=== PATIENT | female | born 1935 | race Caucasian/White ===

== ENCOUNTER → 2023-12-29 09:37 | Outpatient (REF) | payer MEDICARE, BC, SELFPAY ==
[2023-12-29 11:15] LABS: ALT (SGPT) < 10 U/L (0-35); AST (SGOT) 20 U/L (14-36); Albumin 3.5 g/dl (3.5-5.0); Alkaline Phosphatase 82 U/L (38-126); Blood Urea Nitrogen 22 mg/dl (7-17); Calcium 9.2 mg/dl (8.4-10.2); Carbon Dioxide 23 mmol/L (22-30); Chloride 102 mmol/L (98-107); Glucose 82 mg/dl (70-99); Potassium 4.3 mmol/L (3.5-5.1); Sodium 130 mmol/L (135-145); Total Bilirubin 0.6 mg/dl (0.2-1.3); Total Protein 6.7 g/dl (6.3-8.2); eGFR > 60.00
== END ==
LOC: REG 09:37
PROVIDERS: ATTENDING PHYSICIAN Internal Medicine Geriatric Medicine
DX: R35.0 Frequency of micturition (principal); R30.0 Dysuria; M77.8 Other enthesopathies, not elsewhere classified; I10 Essential (primary) hypertension; E78.2 Mixed hyperlipidemia; I48.91 Unspecified atrial fibrillation; I48.0 Paroxysmal atrial fibrillation; F32.0 Major depressive disorder, single episode, mild; E21.3 Hyperparathyroidism, unspecified; Z13.89 Encounter for screening for other disorder; M54.2 Cervicalgia; L98.9 Disorder of the skin and subcutaneous tissue, unspecified; E03.9 Hypothyroidism, unspecified
CPT/HCPCS: 36415; 80053

== ENCOUNTER → 2024-01-27 11:57 | Outpatient (REF) | payer MEDICARE, BC, SELFPAY ==
[2024-01-27 13:50] LABS: Blood Urea Nitrogen 25 mg/dl (7-17); Calcium 9.4 mg/dl (8.4-10.2); Carbon Dioxide 24 mmol/L (22-30); Chloride 99 mmol/L (98-107); Glucose 79 mg/dl (70-99); Potassium 4.2 mmol/L (3.5-5.1); Sodium 130 mmol/L (135-145); eGFR > 60.00
== END ==
LOC: REG 11:57
PROVIDERS: ATTENDING PHYSICIAN Internal Medicine Geriatric Medicine
DX: E87.1 Hypo-osmolality and hyponatremia (principal)
CPT/HCPCS: 36415; 80048

== ENCOUNTER → 2024-02-02 09:40 | Outpatient (REF) | payer MEDICARE, BC, SELFPAY ==
[2024-02-02 10:24] LABS: Osmolality Urine 414 mOsm/kg (300-900)
[2024-02-02 10:55] LABS: Urine Sodium 24 mmol/L (30-90)
== END ==
LOC: REG 09:40
PROVIDERS: ATTENDING PHYSICIAN Internal Medicine Geriatric Medicine
DX: E87.1 Hypo-osmolality and hyponatremia (principal)
CPT/HCPCS: 83935; 84300

== ENCOUNTER 2024-02-26 18:31 | Inpatient (IN) | payer MEDICARE, BC, SELFPAY ==
[2024-02-26] VITALS (18 sets, daily range): BP systolic 107–218; BP diastolic 54–167; BMI 23.9; BMI 23.5
[2024-02-26 16:22] LABS: Glucose - Point of Care 124 mg/dl (70-99)
--- NOTE | 2024-02-26 16:23 | ED.CVA ---
Addendum entered and electronically signed by Fabio Hou PA-C 02/27/24 12:11:
Patient is not a TNK candidate due to low NIH score as well as already anticoagulated with NOAC.
Original Note:
History of Present Illness
General
Chief Complaint: CVA/TIA Symptoms
Source: patient, family and ambulance crew
Time Seen by Provider: 02/26/24 16:08
Onset of Stroke Symptoms
Onset of symptoms known: Yes
Date of onset of symptoms: 02/26/24
Time of onset of symptoms: 14:45
Travel History
Have you had any contact with someone who has COVID-19?: No
Do you have any symptoms of coronavirus? Fever > 100 degrees, chills, cough, shortness of breath, sore throat, loss of taste or smell, muscle aches, or headache?: No
History of Present Illness
History of Present Illness:
89-year-old female with past medical history of CVA, hypertension, atrial fibrillation, previous MO, valvular disease presenting to the emergency department via EMS after family noticed patient had an acute onset of left upper extremity weakness and
speech difficulty around 245 this afternoon with symptoms resolving after around 15 to 20 minutes. Patient arrives to the emergency department stating she feels much better and without any specific concern and family noting that patient's speech
difficulties seem to be fully resolved. Patient denies any associated headaches, visual disturbances, chest pain, shortness of breath, palpitations, diaphoresis or exertional dyspnea. Patient lives alone, daughter is visiting from [place] and had
just gotten to the patient's house when symptoms started patient does take Eliquis daily due to her history of atrial fibrillation and reports good compliance with this. No other concerns.
Past History
Past History
ED Past Medical History: Arrthythmia (Atrial fib), CAD, CVA, GERD, HTN, Hypercholesterolemia, MO, Hypothyroidism, Other (Colitis, Divertiulitis, Left eye vitreous detachment, Migraine) and Other (Posterior vitreous detachment, overactive bladder,
osteoarthritis, mitral and tricuspid regurgitation, ischemic colitis, septal MO in 2015, cardiac cath,)
ED Past Surgical History: Cardiac and Orthopedic (Bilateral knee replacements)
Social History
Tobacco: Non-smoker
Alcohol: None
Drug: None
Personal:
Living: alone (daughter)
Employment: Retired
Family History
Family History: Other (n/c)
Review of Systems
Review of Systems
All Other Systems: ROS reviewed and negative except as documented in HPI and ROS
Phy Exam
Physical Exam
Physical Exam:
GENERAL: Alert , in no apparent distress
EYE: pupils equal and reactive
NECK: Supple
ENT: o/p clr, mmm.
CARDIAC: Regular rate and rhythm, systolic murmur.
LUNGS: Clear breath sounds bilaterally, no acute respiratory distress, no wheezes/rales/rhonchi
ABDOMEN: Soft, without focal tenderness, no r/g, no cvat
SKIN: Warm and dry, skin intact.
MUSCULOSKELETAL: No edema, well perfused.
PSYCH: Normal and appropriate interaction.
NEURO: Moves all extremities, no sensory deficits, no aphasia or dysarthria, no dysmetria, sensory grossly intact to light touch throughout, awake alert and oriented times
Scores
NIH Stroke Score
Level of Consciousness: 0 - Alert
LOC Questions: 0-Answers both correctly
LOC Commands: 0-Performs both correctly
Best Horizontal Gaze: 0-Normal
Visual Hunter: 0=Normal, no visual loss
Facial Palsy: 0=Normal, symmetrical
Motor - Right Arm: 0=No drift 10 seconds
Motor - Left Arm: 0=No drift 10 seconds
Motor - Right Le-No drift 5 seconds
Motor - Left Le-No drift 5 seconds
Limb Ataxia: 0-Absent
Sensation: 0-Normal
Best Language: 0-No aphasia
Dysarthria: 0-Normal
Extinction and Inattention: 0-No abnormality
Total Score:: 0
Heart Failure Risk
Heart Failure Risk Score: Not Applicable
Heart Score for Chest Pain Patients
STEMI patient?: Not applicable
Withdrawal Assessment of Alcohol
Withdrawal Assessment Completed?: Not applicable
Course
Orders/Labs/Results
Orders:
Orders
02/26/24 15:58
CT Head W/o Iv Contrast Urgent
Comment:
Reason For Exam: left sided deficit resolved.
02/26/24 16:15
Electrocardiogram (*1) Urgent
Reason for Study: TIA/Stroke
02/26/24 16:16
EKG- Treatment ONCE
02/26/24 16:19
Bedside Glucose- Treatment ONCE
02/26/24 16:26
Orthostatic VS- Treatment ONCE
02/26/24 16:32
HydrALAZINE [Apresoline] 10 mg IV NOW STA
02/26/24 17:13
Complete Blood Count/With Diff Urgent
Comprehensive Metabolic Panel Urgent
PTT Urgent
Prothrombin Time Urgent
TSH Urgent
Troponin I Urgent
02/26/24 18:09
HydrALAZINE [Apresoline] 10 mg IV Q6HPRN PRN
02/26/24 18:11
NEUROLOGY CONSULT Routine
Consulting Provider: Shankar Steiner
Was physician already notified: Yes
Reason for consult: Ataxia, slurred speech, left hand numbness concern CVA/TIA
02/26/24 18:15
Admit/Transfer Patient As Directed
Co-Sign Provider:
Level of Care: Inpatient admission
Assign to:: Telemetry
Physician / Group: oumar chappell r
Diagnosis: slurred speech ataxia concer cva/tia, htn emergency
Reason for Telemetry: CVA/TIA
Date to Stop Telemetry: 02/29/24
Time to Stop Telemetry: 11:00
Reason for Hospitalization: slurred speech ataxia concer cva/tia, htn emergency
Expected length of stay greater than two midnights?: Yes
ELOS- Estimated Length of Stay in days: 3
I certify the patient meets the requirements for IP care: Yes
Code Status As Directed
Resuscitation Status: Full Code
02/27/24 06:00
MRI Brain [MR Brain Without Contrast] IN AM
Comment:
Reason For Exam: cva/tia
OK for patient to be off Cardiac Monitoring for MRI: Yes
Recent pill cam endoscopy?: No
Pacemaker/Defibrillator?: No
Neck With Contrast MRA [MA Neck With Contrast] IN AM
Comment:
Reason For Exam: cva/tia
OK for patient to be off Cardiac Monitoring for MRI: Yes
Recent pill cam endoscopy?: No
Pacemaker/Defibrillator?: No
02/29/24 11:00
DC Protocol for Telemetry ONCE
Abnormal Lab Results
02/26/24 02/26/24
16:20 17:13
RBC 3.88 L 10^6/uL
(4.20-5.40)
Hgb 10.8 L g/dL
(12.0-16.0)
Hct 32.4 L %
(37.0-47.0)
RDW 18.3 H %
(11.5-14.5)
MPV 11.6 H fL
(7.4-10.4)
PT 16.0 H Sec
(11.4-14.6)
APTT 42.3 H Sec
(23.4-35.0)
Sodium 134 L mmol/L
(135-145)
BUN 25 H mg/dl
(7-17)
Glucose 136 H mg/dl
(70-99)
POC Glucose 124 H mg/dl
(70-99)
02/26/24 17:13
02/26/24 17:13
Vital Signs
Initial and Last Documented VS:
Initial Vital Signs
Temp Pulse Resp BP Pulse Ox
97.6 F 67 17 193/89 98
02/26/24 15:53 02/26/24 15:53 02/26/24 15:53 02/26/24 15:53 02/26/24 15:53
Last Documented Vital Signs
Temp Pulse Resp BP Pulse Ox
97.6 F 64 17 203/94 98
02/26/24 15:53 02/26/24 16:59 02/26/24 15:53 02/26/24 16:59 02/26/24 15:53
MDM/Problems Addressed
Differential Diagnosis Includes:
TIA, hypertensive crisis, intracranial bleed, electrolyte disturbance, infectious process
MDM/Problems Addressed:
89-year-old female presenting the ER via EMS for transient speech difficulties and left upper extremity weakness. Symptoms fully resolved at time of arrival. Patient's only significant findings where she seemed to have some difficulty attempting
to place her hearing aids which is something that she does regularly on her own without difficulty. Patient was also found to be extremely hypertensive with an arriving blood pressure of 193/89 and when repeated this was 203/90. On patient's med
list she does have a as needed hydralazine order so we will order this here. Discussed with neurology with ultimate plan to likely admit with concern for TIA versus hypertensive crisis
Chronic conditions affecting care: HTN and Neurological disorder
Acute Exacerbation and/or Progression of Chronic Illness: HTN and Neurological disorder
*Radiology
Radiology exam reviewed: radiology read reviewed
*Pulse Oximetry
Patient hypoxic: no
*EKG
Interpreted by ED Provider?: Yes
Comparison EKG: no changes
Heart Rate: 66
Rate: normal
Rhythm: sinus
[place]: normal axis
Ischemia: non-specific ST changes
*Technical Communication Teacher Interpretation
Rate: normal
Rhythm: sinus
*Critical Care Note
Total Time (30-74mins, 75-104mins- exclusive of procedures): Not Applicable
Data Reviewed
Review of Other/Old Records Reveals: Labs, Records and Radiology Studies
Source: patient, records and family
Patient Management
Social determinants of health affecting care: Living situation
Discussion with other providers: Hospitalist and Roof C[employer] And Paint Maker Helper
Escalation/DeEscalation of care consider admission/obs:
Patient's blood pressure was improved with medications however given her symptoms, age and current living situation I do feel it is more prudent to admit patient to monitor for further symptoms and blood pressure management. Patient and family are
in agreement. Neurology team is aware and hospitalist accepts for continued evaluation and treatment.
ED Attending Note
-
Portions of this chart may have been created with voice recognition software.� Occasional wrong word or��sound alike� substitutions may have occurred due to the inherent limitations of voice recognition software.
Discharge Plan
Departure
Patient Disposition: Admit
Date of Disposition: 02/26/24
Time of Disposition: 17:30
Presentation/result/management discussed w/ accepting MD/DO: Hospitalist
Discharge Problem:
Hypertensive crisis, Brain TIA
Prescriptions:
No Action
lansoprazole [Prevacid] 30 MG capsule,delayed release(DR/EC)
30 mg PO DAILY
Probiotic 1 EACH capsule
1 cap PO DAILY
atorvastatin 40 MG tablet
40 mg PO QPM Qty: 0 0RF
Eliquis 5 MG tablet
5 mg PO BID Qty: 180 3RF
acetaminophen [Tylenol Extra Strength] 500 MG tablet
1,000 mg PO Q6HPRN PRN (Reason: HEADACHE)
coenzyme Q10 [Co Q-10] 100 MG capsule
100 mg PO DAILY
Saline Nasal 50 SPRAYS/45 ML aerosol,spray
2 sprays intranasal HSPRN PRN (Reason: DRYNESS)
cholecalciferol (vitamin D3) 1,000 UNITS tablet
1,000 units PO DAILY
sotalol 80 MG tablet
80 mg PO QPM
levothyroxine 75 mcg Tablet
75 mcg PO DAILY
mirtazapine 7.5 mg Tablet
7.5 mg PO HS
hydralazine 10 mg Tablet
10 mg PO DAILYPRN PRN (Reason: HIGH BP)
trazodone 50 mg Tablet
50 mg PO HSPRN PRN (Reason: SLEEP)
carbidopa-levodopa 25-100 mg Tablet
1 tab PO TID
d-mannose 500 mg Capsule
1,000 mg PO DAILY
Referrals:
Adonis Mishra MD [Family Provider] -
Discharge Date and Time
Print Language: URDU
[2024-02-26] MEDS: APRESOLINE 10 MG IV ×2 (16:59→21:13)
[2024-02-26 17:22] LABS: % Basophils 0.8 % (0-2); % Eosinophils 2.3 % (0-6); % Immature Granulocytes 0.3 % (0-0.5); % Lymphocytes 29.9 % (20.5-51.1); % Monocytes 8.9 % (1.7-9.3); % Neutrophils 57.8 % (42.2-75.2); Absolute Basophils 0.1 10^3/uL (0-0.2); Absolute Eosinophils 0.1 10^3/uL (0-0.7); Absolute Lymphocytes 1.8 10^3/uL (1.2-3.4); Absolute Monocytes 0.5 10^3/uL (0.1-0.6); Absolute Neutrophils 3.4 10^3/uL (1.4-6.5); Hematocrit 32.4 % (37.0-47.0); Hemoglobin 10.8 g/dL (12.0-16.0); Mean Corp Hgb Conc. 33.3 g/dL (33.0-37.0); Mean Corpuscular Hgb 27.8 pg (27.0-31.0); Mean Corpuscular Volume 83.5 fL (81.0-99.0); Mean Platelet Volume 11.6 fL (7.4-10.4); Nucleated Red Blood Cells % 0 %; Platelet Count 215 10^3/uL (130-400); Red Blood Cell Count 3.88 10^6/uL (4.20-5.40); Red Cell Dist. Width 18.3 % (11.5-14.5)
[2024-02-26 17:38] LABS: APTT 42.3 Sec (23.4-35.0)
--- NOTE | 2024-02-26 17:39 | HPS.HSE ---
Family Physician
-
Family Physician: Adonis Mishra
Chief Complaint
-
Euphoria, left hand numbness, slurred speech, ataxia
History of Present Illness
89-year-old female from home where she was drinking tea with her daughter at the table when she stated she felt euphoric then did not feel well she reported numbness to her left hand and had slurred speech which along with ataxic walking using her
walker for approximately 5 minutes. Her daughter called EMS who brought her to the ER for eval she was noted to be hypertensive / was given IV hydralazine with improvement of symptoms. She started trazodone last night for insomnia. She
denies headache, blurred vision, dizziness, sore throat, chest pain, palpitations, shortness breath, cough, abdominal pain, nausea, vomiting, diarrhea, urinary symptoms. She reports taking her a.m. medication.
PMH paroxysmal A-fib, Parkinson's, HTN, CAD/TX, CVA, GERD, diverticulosis, diverticulitis/colitis, stress incontinence urine, overactive bladder, OA, hypothyroidism, fracture right scapula, HUGHES, cataract, migraines
Medical History
Past Medical History
Past Medical History: Reports Other
Additional Past Medical History:
paroxysmal A-fib
Parkinson's
HTN
CAD/TX
CVA
GERD
diverticulosis/, diverticulitis/colitis
stress incontinence urine, overactive bladder
OA
hypothyroidism
fracture right scapula
HUGHES
cataract
migraines
Insomnia
Past Surgical History: Reports Other
Additional Past Surgical History:
Bilateral knee replacement 2010
Arthroscopy right knee 2012
Mass in mouth removed 2014
Social History
Tobacco: Non-smoker
Alcohol: None
Drug: None
Personal: Single
Living: Alone
Employment: Retired
Family History
Family History: Other (Mother CVA, father renal cancer)
Allergies / Home Medications
Allergies reflects when Allergies were last updated in [employer].
Home Medications with original date entered in [employer]
Allergy/Medication List:
Allergies
Allergy/AdvReac Type Severity Reaction Status Date / Time
oxybutynin Allergy hallucinations; Verified 02/26/24 15:53
restless
legs
amitriptyline AdvReac HALLUCINATI Verified 02/26/24 15:53
ONS
Home Medications
lansoprazole 30 mg capsule,delayed release (Prevacid) 30 mg PO DAILY 06/22/13
lactobacillus combination no.4 3 billion cell capsule (Probiotic) 1 cap PO DAILY 01/26/15
atorvastatin 40 mg tablet 40 mg PO QPM ##0 01/28/15
apixaban 5 mg tablet (Eliquis) 5 mg PO BID #180 tabs 12/22/16
acetaminophen 500 mg tablet (Tylenol Extra Strength) 1,000 mg PO Q6HPRN PRN HEADACHE 02/06/17
cholecalciferol (vitamin D3) 25 mcg (1,000 unit) tablet 1,000 units PO DAILY 02/06/17
coenzyme Q10 100 mg capsule (Co Q-10) 100 mg PO DAILY 02/06/17
sodium chloride 0.65 % nasal spray aerosol (Saline Nasal) 2 sprays intranasal HSPRN PRN DRYNESS 02/06/17
sotalol 80 mg tablet 80 mg PO QPM 02/06/19
levothyroxine 75 mcg tablet 75 mcg PO DAILY 10/11/22
mirtazapine 7.5 mg tablet 7.5 mg PO HS 10/11/22
carbidopa 25 mg-levodopa 100 mg tablet 1 tab PO TID 02/26/24
d-mannose 500 mg capsule 1,000 mg PO DAILY 02/26/24
hydralazine 10 mg tablet 10 mg PO DAILYPRN PRN HIGH BP 02/26/24
trazodone 50 mg tablet 50 mg PO HSPRN PRN SLEEP 02/26/24
Review of Systems
-
History Source: Patient and Family (Daughter at bedside)
A 12 point ROS was completed and negative except as noted: Yes
Constitutional: Reports Other (Patient reports feeling euphoric); Denies Fatigue
EENT: Denies Sore Throat or Runny Nose
Respiratory: Denies Cough or Trouble Breathing
Cardiac: Denies Chest Pain, Diaphoresis, Palpitations or Syncope
Abdomen/GI: Denies Abdominal Pain, Nausea, Vomiting, Diarrhea, Constipated, Bloody Stools or Black Stools
: Denies Dysuria, Frequency, Flank Pain, Incontinence, Difficulty Voiding or Urgency
Musculoskeletal: Denies Joint Pain or Edema
Skin: Denies Itching or Rash
Neurological: Reports Numbness (Left hand); Denies Dizzy, Headache or Weakness
Endocrine: Reports No Symptoms
Hematologic/Lymphatic: Reports No Symptoms
Psych: Reports Calm
Physical Exam
Vital Signs
Vital Signs
Temp Pulse Resp BP Pulse Ox
97.6 F 64 17 203/94 98
02/26/24 15:53 02/26/24 16:59 02/26/24 15:53 02/26/24 16:59 02/26/24 15:53
Physical Exam
General: No Apparent Distress, Comfortable and Conversant; No Pain, Fever or Chills
HEENT: NormoCephalic, Anicteric, Moist mucous membranes, PERRLA, Altha Conjunctivae and No Ptosis
Respiratory: Clear; No Wheezes, Rales or Rhonchi
Cardiac: S1/S2 and Regular Rhythm; No Murmur, Rub, Gallop or Peripheral Edema
GI: Soft, Non Tender, Non Distended, Normal Bowel Sounds and No Hepatosplenomegaly
Rectal: Deferred by Provider
Genito-urinary: Deferred by me
Musculoskeletal: No Clubbing, No Cyanosis and No Edema
Skin: Warm and Dry; No Rash or Jaundice
Neuro: AO x 3, No Motor Deficits, Nonfocal/grossly intact, Cranial Nerves Intact and No Sensory Deficits; No Slurred Speech, Facial Droop or Tremors
Psych: Calm
Laboratory Results
-
02/26/24 17:13
Laboratory Results
PT 16.0 Sec (11.4-14.6) H 02/26/24 17:13
INR 1.30 02/26/24 17:13
Impression/Plan
-
Impression/plan:
Inpt telemetry
#Hypertensive Emergency
203 > 139/61
IV hydralazine in Er
- Prn IV hydralazine
-Start Norvasc 5 mg in a.m.(patient used to be on but stopped in June 2023)
CT head: No acute intracranial hemorrhage. Mild white matter leukoaraiosis in both cerebral hemispheres
#Slurred speech left hand numbness concern Tia/cva
#Tia hx
- Consult Neuro
#Hx recent hyponatremia
NA 136
-Has an appointment 02/29/2024 with nephro
#Parkinson's disease
- Continue carbidopa levodopa
#Paroxysmal A-fib
-Continue Eliquis 5 mg twice daily, sotalol 80 mg at 1800
-Follows with [facility]
EKG: NSR 66 bpm, QTc 440 MS no significant change from November 2023
#Hypothyroidism
-Continue levothyroxine
#GERD
-Continue Prevacid
#HLD
Continue atorvastatin 40 mg every afternoon
#Migraines hx
-None reported
#Insomnia
-Continue trazodone just started 02/25/24
-Continue Remeron 7.5 mg at bedtime
Other PMH:
Diverticulosis/, diverticulitis/colitis
Stress incontinence urine, overactive bladder
OA
fracture right scapula
HUGHES
cataract
DVT prophylaxis
Continue [employer] [employer] Eliquis
Full code
[2024-02-26 17:48] LABS: ALT (SGPT) < 10 U/L (0-35); AST (SGOT) 18 U/L (14-36); Alkaline Phosphatase 93 U/L (38-126); Blood Urea Nitrogen 25 mg/dl (7-17); Carbon Dioxide 27 mmol/L (22-30); Chloride 102 mmol/L (98-107); Glucose 136 mg/dl (70-99); Potassium 3.7 mmol/L (3.5-5.1); Sodium 134 mmol/L (135-145); Total Bilirubin 0.5 mg/dl (0.2-1.3); Total Protein 7.3 g/dl (6.3-8.2); Troponin I < 0.012 ng/ml; eGFR > 60.00
--- NOTE | 2024-02-26 18:22 | W.PN.UPDATE ---
Update Note
Progress Note Update
I saw and examined the patient.
The SUMO WRESTLER's note was reviewed and I agree with the note.
89-year-old female with a past medical history of essential hypertension, Parkinson, hyperlipidemia paroxysmal A-fib on Eliquis, hypothyroidism, insomnia,, depression came to ER with new onset of left upper extremity weakness and speech difficulty
which resolved in 1050 minutes. Patient was also noted to hypertensive in ER. Patient recently been taken off of 1 medication administration to trazodone.
HEENT: No pallor, cyanosis, or jaundice. Throat clear.
NECK: Supple. No JVD.
RESPIRATORY: Lungs clear to auscultation.
CVS: S1, S2 normal. RRR. No murmur, rub or gallop.
ABDOMEN: Soft, non-tender. No distension. BS+/normal.
EXTREMITIES: No peripheral cyanosis or edema.
FACING END TRIMMER: AOx3. No focal deficits.
Speech changes/LUE sensation change
r/o CVA
-Presumed TIA episode, have history of previous TIA episode
-CT head without contrast negative for acute abnormality
-MRI brain and MRA neck ordered
-Maintain on regimen of Eliquis and statin
-Check lipid profile in the morning
-Neurology evaluation
Hypertensive emergency
-Above-mentioned symptoms mainly occurred during elevated blood pressure
-Patient got IV hydralazine in ER and blood pressure down to systolic 140
-Maintain on home regimen of medication
Paroxysmal A-fib
-Continue home dose of sotalol, EKG in the morning
-Continue Eliquis for now
[2024-02-26 18:31] LABS: TSH 6.23 uIU/ml (0.47-4.68)
[2024-02-26] MEDS: ELIQUIS 5 MG PO (21:11)
[2024-02-26] MEDS: SINEMET 25-100 1 TABLET PO (21:12)
[2024-02-26] MEDS: REMERON 7.5 MG PO (21:12)
[2024-02-26] MEDS: BETAPACE 80 MG PO (22:12)
[2024-02-26] MEDS: TYLENOL 1000 MG PO (22:24)
[2024-02-27] VITALS (11 sets, daily range): BP systolic 105–152; BP diastolic 54–79; PULSE 69; O2SAT 95; BMI 23.5
--- NOTE | 2024-02-27 02:11 | PTCARENOTE ---
Pt admitted to the unit from ED. Pt pulled over to bed from stretcher by nursing staff. AAXO3. Pt reports chronic back pain. Back pain meets pt acceptable level. Admission completed with pt and daughter at bedside. Pt oriented to room with call richards
in reach. Plan of care ongoing.
[2024-02-27] MEDS: SYNTHROID 75 MCG PO (05:31)
[2024-02-27] MEDS: ELIQUIS 5 MG PO ×2 (07:21→19:43)
[2024-02-27] MEDS: PROTONIX 40 MG PO (07:21)
[2024-02-27] MEDS: VISBIOME 1 CAP PO (07:21)
[2024-02-27] MEDS: VITAMIN D3 (cholecalciferol) 25 MCG PO (07:21)
[2024-02-27] MEDS: SINEMET 25-100 1 TABLET PO ×3 (07:21→21:43)
[2024-02-27 07:53] LABS: % Basophils 1.1 % (0-2); % Eosinophils 2.5 % (0-6); % Immature Granulocytes 0.4 % (0-0.5); Absolute Basophils 0.1 10^3/uL (0-0.2); Absolute Eosinophils 0.1 10^3/uL (0-0.7); Absolute Lymphocytes 1.8 10^3/uL (1.2-3.4); Absolute Monocytes 0.5 10^3/uL (0.1-0.6); Hematocrit 30.6 % (37.0-47.0); Mean Corp Hgb Conc. 32.7 g/dL (33.0-37.0); Mean Corpuscular Hgb 27.5 pg (27.0-31.0); Mean Corpuscular Volume 84.3 fL (81.0-99.0); Mean Platelet Volume 11.5 fL (7.4-10.4); Nucleated Red Blood Cells % 0 %; Platelet Count 173 10^3/uL (130-400); Red Blood Cell Count 3.63 10^6/uL (4.20-5.40); Red Cell Dist. Width 18.4 % (11.5-14.5); White Blood Cell Count 5.6 10^3/uL (4.8-10.8)
[2024-02-27 08:25] LABS: Blood Urea Nitrogen 22 mg/dl (7-17); Calcium 9.4 mg/dl (8.4-10.2); Carbon Dioxide 27 mmol/L (22-30); Chloride 104 mmol/L (98-107); Estimated Creatinine Clearance 36 ml/min; Glucose 83 mg/dl (70-99); HDL Cholesterol 57 mg/dl; LDL Cholesterol, Calculated 31 mg/dl; Potassium 3.6 mmol/L (3.5-5.1); Sodium 134 mmol/L (135-145); Total Cholesterol 99 mg/dl (50-199); Triglyceride 57 mg/dl (10-149); Very Low Density Lipoprotein 11 mg/dl (0-30); eGFR > 60.00
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
[2024-02-27 10:39] LABS: Erythrocyte Sed Rate 27 mm/hour (0-20)
[2024-02-27 10:53] LABS: Ferritin 11.9 ng/ml (11.1-264.0)
[2024-02-27 11:15] LABS: Free T4 1.79 ng/dl (0.78-2.19)
[2024-02-27 11:24] LABS: Folate 14.4 ng/ml (2.76-20); Vitamin B12 290 pg/ml (239-931)
--- NOTE | 2024-02-27 12:44 | W.PN.HOSP.TC ---
Today's Communication/Plan
-
await mri/mra neck report
possible discharge later today after MRI
Assessment / Plan
Assessment / Plan
Speech changes/LUE sensation change
r/o CVA
-Presumed TIA episode, have history of previous TIA episode
-CT head without contrast negative for acute abnormality
-MRI brain and MRA neck pending today
-Maintain on regimen of Eliquis and statin
-LDL 31 HDL 57
-Neurology evaluation
Hypertensive emergency
-Above-mentioned symptoms mainly occurred during elevated blood pressure
-Patient got IV hydralazine in ER and blood pressure down to systolic 140
-Maintain on home regimen of medication
Paroxysmal A-fib
-Continue home dose of sotalol, EKG in the morning
-Continue Eliquis for now
Hypothyroidism
-TSH 10.2 Free T41.7
-Patient follows up with endocrinology and wanted to follow-up with them to discuss labs
-Continue levothyroxine 75 mcg/day
Gastroesophageal reflux disease
Hyperlipidemia
History of migraine
History of diverticulosis
Stress incontinence
Osteoarthritis
Right scapular fracture
Cataract
DVT prophylaxis -Eliquis
Anticipated Discharge: Within 24 hours
Subjective/Interval History
-
Date of Service: February 27, 2024
Denies of having any problems
Blood pressure better controlled
Objective Data
-
Labs:
Laboratory Results
02/27/24
06:47
WBC 5.6
Hgb 10.0 L
Hct 30.6 L
Plt Count 173
Sodium 134 L
Potassium 3.6
Chloride 104
Carbon Dioxide 27
BUN 22 H
Creatinine 0.8
Glucose 83
Calcium 9.4
Vital Signs:
Vital Signs
Temp Pulse Resp BP Pulse Ox
97.8 F 65 20 122/71 97
02/27/24 11:00 02/27/24 11:00 02/27/24 11:00 02/27/24 11:00 02/27/24 11:00
I&O
02/26/24 02/27/24 02/28/24
06:59 06:59 06:59
Intake Total 200 / 200
Output Total 300 / 300
Balance -100 / -100
Review of Systems
-
Respiratory: Reports No Symptoms
Cardiac: Reports No Symptoms
Abdomen/GI: Reports No Symptoms
Physical Exam
-
General: No Apparent Distress and Comfortable
HEENT: Negative Oxygen
Respiratory: Clear to Auscultation
Cardiac: Regular Rhythm and S1/S2; Negative Murmur or Rub
GI: Soft, Nontender, Nondistended and Normal Bowel Sounds
Musculoskeletal: No Edema
Neuro: Awake, Alert, Oriented, No Motor Deficits and Nonfocal/Grossly Intact
Psych: Calm
--- NOTE | 2024-02-27 14:23 | CM ---
Patient seen bedside with daughters, initial assessment completed. Patient lives alone in a one story home, two steps to enter. Patient has a cane and a walker at home if needed. Patient reports she has had [facility] in the past, SNF over 10
years ago, unsure where. Patient confirms PCP Dr. Mishra, pharmacy [facility]. CM reviewed IMM, signed, placed in patients chart. CM will watch for PT/OT needs, will continue to follow for discharge planning needs.
Plan; home no needs, watch for PT/OT evals and further recommendations.
[2024-02-27] MEDS: LIPITOR 40 MG PO (17:07)
[2024-02-27] MEDS: BETAPACE 80 MG PO (17:12)
[2024-02-27] MEDS: REMERON 7.5 MG PO (21:43)
[2024-02-28 03:37] VITALS: BP 140/82
[2024-02-28] MEDS: SYNTHROID 75 MCG PO (06:04)
[2024-02-28 06:49] LABS: % Basophils 0.6 % (0-2); % Eosinophils 1.9 % (0-6); % Immature Granulocytes 0.2 % (0-0.5); % Lymphocytes 29.3 % (20.5-51.1); % Monocytes 8.8 % (1.7-9.3); % Neutrophils 59.2 % (42.2-75.2); Absolute Basophils 0.1 10^3/uL (0-0.2); Absolute Eosinophils 0.2 10^3/uL (0-0.7); Absolute Lymphocytes 2.4 10^3/uL (1.2-3.4); Absolute Monocytes 0.7 10^3/uL (0.1-0.6); Absolute Neutrophils 4.8 10^3/uL (1.4-6.5); Hematocrit 32.5 % (37.0-47.0); Hemoglobin 10.2 g/dL (12.0-16.0); Mean Corp Hgb Conc. 31.4 g/dL (33.0-37.0); Mean Corpuscular Hgb 27.1 pg (27.0-31.0); Mean Corpuscular Volume 86.4 fL (81.0-99.0); Mean Platelet Volume 11.6 fL (7.4-10.4); Nucleated Red Blood Cells % 0 %; Platelet Count 212 10^3/uL (130-400); Red Blood Cell Count 3.76 10^6/uL (4.20-5.40); Red Cell Dist. Width 18.3 % (11.5-14.5); White Blood Cell Count 8.1 10^3/uL (4.8-10.8)
[2024-02-28 07:00] VITALS: BP 194/100
[2024-02-28 07:12] LABS: Blood Urea Nitrogen 31 mg/dl (7-17); Calcium 9.7 mg/dl (8.4-10.2); Carbon Dioxide 27 mmol/L (22-30); Chloride 100 mmol/L (98-107); Estimated Creatinine Clearance 36 ml/min; Glucose 90 mg/dl (70-99); Potassium 4.2 mmol/L (3.5-5.1); Sodium 134 mmol/L (135-145); eGFR > 60.00
[2024-02-28] MEDS: VISBIOME 1 CAP PO (08:36)
[2024-02-28] MEDS: APRESOLINE 10 MG IV (08:36)
[2024-02-28] MEDS: SINEMET 25-100 1 TABLET PO (08:36)
[2024-02-28] MEDS: ELIQUIS 5 MG PO (08:36)
[2024-02-28] MEDS: VITAMIN D3 (cholecalciferol) 25 MCG PO (08:36)
[2024-02-28] MEDS: PROTONIX 40 MG PO (08:36)
[2024-02-28] MEDS: PROCARDIA XL (EXTENDED RELEASE) 30 MG PO (10:05)
[2024-02-28] MEDS: ATIVAN 1 MG PO (10:36)
[2024-02-28 11:00] VITALS: BP 126/68
--- NOTE | 2024-02-28 13:39 | W.PN.HOSP.TC ---
Today's Communication/Plan
-
d/c home
Assessment / Plan
Assessment / Plan
Speech changes/LUE sensation change
r/o CVA
-Presumed TIA episode, have history of previous TIA episode
-CT head without contrast negative for acute abnormality
-MRI brain and MRA neck did not show any acute abnormalities.
-Maintain on regimen of Eliquis and statin
-LDL 31 HDL 57
-Neurology evaluated
Hypertensive emergency
Essential hypertension
-Above-mentioned symptoms mainly occurred during elevated blood pressure
-Patient got IV hydralazine in ER and blood pressure down to systolic 140
-Patient blood pressure again elevated with systolic blood pressure in 190s. Adding Procardia 30 mg daily
-Further follow-up with PCP for low-dose assessment as needed
Paroxysmal A-fib
-Continue home dose of sotalol, EKG in the morning
-Continue Eliquis for now
Hypothyroidism
-TSH 10.2 Free T41.7
-Patient follows up with endocrinology and wanted to follow-up with them to discuss labs
-Continue levothyroxine 75 mcg/day
Gastroesophageal reflux disease
Hyperlipidemia
History of migraine
History of diverticulosis
Stress incontinence
Osteoarthritis
Right scapular fracture
Cataract
DVT prophylaxis -Eliquis
02/27 care plan discussed with patient daughter over the phone.
More than 30 minutes spent in discharge including
Final examination of the patient
Summarizing hospital stay
Instructions for continuing care to all relevant caregivers
Preparation of discharge records, prescriptions, and referral forms
Total time spent (in minutes):
Anticipated Discharge: Today
Subjective/Interval History
-
Date of Service: February 28, 2024
Patient feeling down/depressed
Somewhat confused night, hypertensive on vital checks in the morning
Objective Data
-
Labs:
Laboratory Results
02/28/24
06:30
WBC 8.1
Hgb 10.2 L
Hct 32.5 L
Plt Count 212 D
Sodium 134 L
Potassium 4.2
Chloride 100
Carbon Dioxide 27
BUN 31 H
Creatinine 0.8
Glucose 90
Calcium 9.7
Vital Signs:
Vital Signs
Temp Pulse Resp BP Pulse Ox
97.5 F 70 16 126/68 97
02/28/24 11:00 02/28/24 11:00 02/28/24 11:00 02/28/24 11:00 02/28/24 11:00
I&O
02/27/24 02/28/24 02/29/24
06:59 06:59 06:59
Intake Total 200 / 200 760 / 760
Output Total 300 / 300
Balance -100 / -100 760 / 760
Review of Systems
-
Respiratory: Reports No Symptoms
Cardiac: Reports No Symptoms
Abdomen/GI: Reports No Symptoms
Physical Exam
-
General: No Apparent Distress and Comfortable
HEENT: Negative Oxygen
Respiratory: Clear to Auscultation
Cardiac: Regular Rhythm and S1/S2; Negative Murmur or Rub
GI: Soft, Nontender and Nondistended
Musculoskeletal: No Edema
Neuro: Awake, Alert, Oriented, No Motor Deficits and Nonfocal/Grossly Intact
Psych: Calm
[2024-02-28 13:45] VITALS: BMI 23.5
--- NOTE | 2024-02-28 13:58 | CM ---
Addendum entered by Dorcas Polanco 02/28/24 14:45:
[facility] fax# [phone]
Original Note:
Patient seen bedside with daughter, discussed PT recommendation of home health vs SNF, patient and daughter would like home services and requested referral for [facility], referral made in [facility]. Daughter will provide transportation home. CM will
continue to follow for discharge planning needs.
Plan; home with [facility] pending acceptance.
--- NOTE | 2024-02-28 17:37 | W.DCSUMMARY ---
Discharge Summary
Discharge Data
Date of Admission: 02/26/24
Date of Discharge: 02/28/24
-
Pending Results: No
Hospital Course
Discharging Physician : Dr Allan Shelton
Disposition : Home with
Primary care physician : Dr Adonis Rashid
Principal Discharge diagnosis :
Transient ischemic attack
Hypertensive emergency
Chronic Discharge diagnosis :
Essential hypertension
Paroxysmal atrial fibrillation on Eliquis
Hypothyroidism
Gastroesophageal reflux disease
Hyperlipidemia
History of migraine
History of diverticulosis
Stress incontinence
Osteoarthritis
Right scapular fracture
Hospital Course :
Patient is 89-year-old female with above-mentioned past medical history was brought in by family member after patient was having new onset of left hand numbness and slurred speech along with ataxia. Symptoms lasted for 5 minutes. By the time EMS
arrived patient was noted to be hypertensive with systolic blood pressure in 200s. Patient was brought into ER for further evaluation. Patient had a CT head without contrast and was negative for any acute abnormality. Patient was provided IV
blood pressure medication to control hypertensive emergency. Neurology was consulted with new neurosymptoms. Patient does have history of previous TIA and with clinical presentation concerning for repeat episode of TIA. Follow-up MRI brain and
MRA neck was ordered which was negative for any acute abnormality. No new stroke was noted on MRI brain. Patient cleared physical therapy evaluation. Patient had repeated episode of hypertensive urgency and was started on Procardia for blood
pressure control. Post medical stabilization patient was discharged home with home health care.
Important imaging findings :
None
Procedure findings :
None
Discharge Plan
-
Patient Disposition: Home (Routine Discharge)
Discharge Diagnosis/Procedures: TIA episode, HTN urgency
Condition: Fair
Diet: 2 Gram Sodium
Activity: As tolerated
Driving Restrictions: No driving for 24 hours
Bathing Restrictions: OK to Shower
Activity Restrictions/Additional Instructions:
Please check blood pressure 2 times a day and keep a blood pressure diary for family physician to follow-up.
Referrals:
Adonis Mishra MD [Family Provider] - in one week
Prescriptions:
New
nifedipine [Procardia XL] 30 mg tablet extended release 24hr
30 mg PO DAILY Qty: 30 1RF
Continued
lansoprazole [Prevacid] 30 MG capsule,delayed release(DR/EC)
30 mg PO DAILY
Probiotic 1 EACH capsule
1 cap PO DAILY
atorvastatin 40 MG tablet
40 mg PO QPM Qty: 0 0RF
Eliquis 5 MG tablet
5 mg PO BID Qty: 180 3RF
acetaminophen [Tylenol Extra Strength] 500 MG tablet
1,000 mg PO Q6HPRN PRN (Reason: HEADACHE)
coenzyme Q10 [Co Q-10] 100 MG capsule
100 mg PO DAILY
Saline Nasal 50 SPRAYS/45 ML aerosol,spray
2 sprays intranasal HSPRN PRN (Reason: DRYNESS)
cholecalciferol (vitamin D3) 1,000 UNITS tablet
1,000 units PO DAILY
sotalol 80 MG tablet
80 mg PO QPM
levothyroxine 75 mcg Tablet
75 mcg PO DAILY@07
mirtazapine 7.5 mg Tablet
7.5 mg PO HS
hydralazine 10 mg Tablet
10 mg PO DAILYPRN PRN (Reason: HIGH BP)
trazodone 50 mg Tablet
50 mg PO HSPRN PRN (Reason: SLEEP)
carbidopa-levodopa 25-100 mg Tablet
1 tab PO TID
d-mannose 500 mg Capsule
1,000 mg PO BID
Discharge Orders:
Discharge Patient (As Directed); Ordered 02/28/24
Ordered By: Allan Shelton
Discharge Date and Time
Discharge Date/Time: 02/28/24 15:30
Print Language: UGANDAN
== END 2024-02-28 15:30 | disposition home health service (06) | DRG 69 ==
LOC: 4 WEST ACU 18:31
PROVIDERS: Clinical Nurse Specialist Family Health; Physician Assistant Medical; ADMITTING PHYSICIAN Hospitalist; CONSULT PHYSICIAN Psychiatry & Neurology Neurology; EMERGENCY PHYSICIAN Emergency Medicine; FAMILY PHYSICIAN Internal Medicine Geriatric Medicine
DX: G45.9 Transient cerebral ischemic attack, unspecified (principal); I16.1 Hypertensive emergency; R47.01 Aphasia; E87.1 Hypo-osmolality and hyponatremia; R53.1 Weakness; I10 Essential (primary) hypertension; I48.0 Paroxysmal atrial fibrillation; E03.9 Hypothyroidism, unspecified; E78.00 Pure hypercholesterolemia, unspecified; G43.909 Migraine, unspecified, not intractable, without status migrainosus; I25.10 Atherosclerotic heart disease of native coronary artery without angina pectoris; K21.9 Gastro-esophageal reflux disease without esophagitis; M19.90 Unspecified osteoarthritis, unspecified site; N32.81 Overactive bladder; R27.0 Ataxia, unspecified; G47.00 Insomnia, unspecified; H02.402 Unspecified ptosis of left eyelid; I08.1 Rheumatic disorders of both mitral and tricuspid valves; H91.90 Unspecified hearing loss, unspecified ear; G20.A1 Parkinson's disease without dyskinesia, without mention of fluctuations; N39.3 Stress incontinence (female) (male); Z60.2 Problems related to living alone; Z96.653 Presence of artificial knee joint, bilateral; I25.2 Old myocardial infarction; Z86.73 Personal history of transient ischemic attack (TIA), and cerebral infarction without residual deficits; Z87.19 Personal history of other diseases of the digestive system; Z88.8 Allergy status to other drugs, medicaments and biological substances; Z79.01 Long term (current) use of anticoagulants
CPT/HCPCS: 70450; 70548; 70551; 80048; 80053; 80061; 82607; 82728; 82746; 82962; 83036; 84439; 84443; 84484; 85025; 85610; 85652; 85730; 93005; 96374; 97162; 97166; 99285; A9585

== ENCOUNTER → 2024-03-14 06:52 | Outpatient (REF) | payer MEDICARE, BC, SELFPAY ==
--- NOTE | 2024-03-14 09:39 | EEG.RPT ---
Electroencephalogram Report
Recording
Date of EE03/14/24
Type of EEG: Routine
Length of EEG recordin hour 4 minutes
Patient Status: Outpatient
Recording Conditions: Awake and Drowsy
Hyperventilation Performed: No
Photic Stimulation Performed: Yes
Hand Dominance: Unknown
Report
GREATER THAN 1 HOUR EEG INTERPRETATION:
Unremarkable EEG for age
CLINICAL CORRELATION:
A normal EEG does not rule out a diagnosis of epilepsy.� If clinical suspicion for seizure persists, a prolonged recording may be warranted.
Clinical correlation is advised.
METHODS:
A 21 channel digitized electroencephalogram (EEG) was performed using the 10/20 international system of electrode placement and one-lead of ECG recorded. Duration was 1 hour and 4 minutes.
ELECTROENCEPHALOGRAPHER IMPRESSION(S):
Quality of study
Good
Background
Mixed to medium amplitude background of alpha and theta frequencies
Normal posterior dominant rhythm of 8 Hz seen which attenuates with eye opening
There were no significant asymmetries of background activity noted.
Sleep
Drowsiness present
Photic Stimulation
No activation
ECG
Normal sinus rhythm
== END ==
LOC: RCS 06:52
PROVIDERS: ATTENDING PHYSICIAN Psychiatry & Neurology Neurology; FAMILY PHYSICIAN Internal Medicine Geriatric Medicine
DX: R47.01 Aphasia (principal)
CPT/HCPCS: 95813

== ENCOUNTER → 2024-04-06 09:25 | Outpatient (REF) | payer MEDICARE, BC, SELFPAY ==
[2024-04-06 11:16] LABS: Blood Urea Nitrogen 22 mg/dl (7-17); Calcium 9.7 mg/dl (8.4-10.2); Carbon Dioxide 28 mmol/L (22-30); Chloride 99 mmol/L (98-107); Glucose 101 mg/dl (70-99); Potassium 4.3 mmol/L (3.5-5.1); Sodium 134 mmol/L (135-145); eGFR > 60.00
== END ==
LOC: REG 09:25
PROVIDERS: ATTENDING PHYSICIAN Student in an Organized Health Care Education/Training Program; FAMILY PHYSICIAN Internal Medicine Geriatric Medicine
DX: E87.1 Hypo-osmolality and hyponatremia (principal)
CPT/HCPCS: 36415; 80048

== ENCOUNTER → 2024-05-10 09:21 | Outpatient (REF) | payer MEDICARE, BC, SELFPAY ==
[2024-05-10 10:53] LABS: Blood Urea Nitrogen 18 mg/dl (7-17); Calcium 9.7 mg/dl (8.4-10.2); Carbon Dioxide 27 mmol/L (22-30); Chloride 97 mmol/L (98-107); Glucose 97 mg/dl (70-99); Potassium 4.5 mmol/L (3.5-5.1); Sodium 131 mmol/L (135-145); eGFR > 60.00
== END ==
LOC: REG 09:21
PROVIDERS: ATTENDING PHYSICIAN Student in an Organized Health Care Education/Training Program
DX: E87.1 Hypo-osmolality and hyponatremia (principal)
CPT/HCPCS: 36415; 80048

== ENCOUNTER → 2024-07-15 09:12 | Outpatient (REF) | payer MEDICARE, BC, SELFPAY ==
[2024-07-15 11:36] LABS: Urine Albumin Negative (Neg - Trace); Urine Bilirubin Negative (Negative); Urine Character Clear (Clear); Urine Color Yellow; Urine Glucose Negative (Negative); Urine Ketone Negative (Negative); Urine Leukocyte 1+ (Negative); Urine Nitrite Negative (Negative); Urine Occult Blood Negative (Negative); Urine Urobilinogen Negative (Neg - 1+)
[2024-07-15 11:39] LABS: % Basophils 0.7 % (0-2); % Eosinophils 2.1 % (0-6); % Immature Granulocytes 0.3 % (0-0.5); % Lymphocytes 26.2 % (20.5-51.1); % Monocytes 7.4 % (1.7-9.3); % Neutrophils 63.3 % (42.2-75.2); Absolute Basophils 0.1 10^3/uL (0-0.2); Absolute Eosinophils 0.1 10^3/uL (0-0.7); Absolute Lymphocytes 1.8 10^3/uL (1.2-3.4); Absolute Monocytes 0.5 10^3/uL (0.1-0.6); Absolute Neutrophils 4.3 10^3/uL (1.4-6.5); Hematocrit 34.2 % (37.0-47.0); Hemoglobin 10.7 g/dL (12.0-16.0); Mean Corp Hgb Conc. 31.3 g/dL (33.0-37.0); Mean Corpuscular Hgb 27.1 pg (27.0-31.0); Mean Corpuscular Volume 86.6 fL (81.0-99.0); Nucleated Red Blood Cells % 0 %; Platelet Count 129 10^3/uL (130-400); Red Blood Cell Count 3.95 10^6/uL (4.20-5.40); Red Cell Dist. Width 16.7 % (11.5-14.5); White Blood Cell Count 6.7 10^3/uL (4.8-10.8)
[2024-07-15 11:45] LABS: Urine Bacteria Moderate (Negative); Urine Red Blood Cell 0-2 /HPF (0-2)
[2024-07-15 12:31] LABS: ALT (SGPT) < 10 U/L (0-35); AST (SGOT) 23 U/L (14-36); Albumin 4.1 g/dl (3.5-5.0); Alkaline Phosphatase 93 U/L (38-126); Blood Urea Nitrogen 21 mg/dl (7-17); Calcium 9.8 mg/dl (8.4-10.2); Carbon Dioxide 28 mmol/L (22-30); Chloride 94 mmol/L (98-107); Glucose 94 mg/dl (70-99); HDL Cholesterol 69 mg/dl; LDL Cholesterol, Calculated 47 mg/dl; Potassium 4.9 mmol/L (3.5-5.1); Sodium 132 mmol/L (135-145); Total Bilirubin 0.5 mg/dl (0.2-1.3); Total Cholesterol 128 mg/dl (50-199); Total Protein 7.3 g/dl (6.3-8.2); Triglyceride 64 mg/dl (10-149); Very Low Density Lipoprotein 12 mg/dl (0-30); eGFR > 60.00
[2024-07-15 12:36] LABS: Vitamin D, 25-OH*** 49.8 ng/mL (30-80)
[2024-07-15 12:50] LABS: TSH 3.59 uIU/ml (0.47-4.68)
[2024-07-16 10:09] LABS: Intact PTH 89.7 pg/ml (13.6-85.8)
== END ==
LOC: REG 09:12
PROVIDERS: ATTENDING PHYSICIAN Internal Medicine Geriatric Medicine; REFERRING PHYSICIAN Internal Medicine Endocrinology, Diabetes & Metabolism
DX: G20.A1 Parkinson's disease without dyskinesia, without mention of fluctuations (principal); I10 Essential (primary) hypertension; E78.2 Mixed hyperlipidemia; I48.91 Unspecified atrial fibrillation; R26.9 Unspecified abnormalities of gait and mobility; I25.10 Atherosclerotic heart disease of native coronary artery without angina pectoris; E03.9 Hypothyroidism, unspecified; I42.9 Cardiomyopathy, unspecified; E21.3 Hyperparathyroidism, unspecified; R25.1 Tremor, unspecified; Z13.31 Encounter for screening for depression; K21.9 Gastro-esophageal reflux disease without esophagitis; E87.1 Hypo-osmolality and hyponatremia
CPT/HCPCS: 36415; 80053; 80061; 81003; 81015; 82306; 83970; 84443; 85025